=== PATIENT | female | born 1965 | race Caucasian/White ===

== ENCOUNTER 2017-07-14 05:58 | Day surgery (SDC) | payer OTHER ==
[~2017-07-14] VITALS: Ht 157.5 cm; Wt 73.9 kg
[2017-07-14] MEDS ORDERED: MIDAZOLAM HCL 5 MG/ML VIAL (VERSED) IV ONE (05:59)
[2017-07-14] MEDS ORDERED: CEFAZOLIN 2 GM IVPB PREMIX 50 ML IV ONE (05:59)
[2017-07-14] MEDS ORDERED: PROPOFOL 200MG/ 20ML VIAL (DIPRIVAN) IV ONE (05:59)
[2017-07-14] MEDS ORDERED: NS 1000 ML BAG IV ONE (05:59)
[2017-07-14] MEDS ORDERED: fentaNYL CITRATE 250 MCG/5 ML AMP IV ONE (05:59)
[2017-07-14] MEDS ORDERED: ROCURONIUM BROMIDE 10 MG/ML (ZEMURON) IV ONE (05:59)
[2017-07-14] MEDS ORDERED: ONDANSETRON HCL 4 MG/2 ML VIAL IVP ONE (05:59)
[2017-07-14] MEDS ORDERED: KETOROLAC TROMETHAMINE 30 MG VIAL IVP ONE (05:59)
[2017-07-14] MEDS ORDERED: LR 1,000 ML IV.SOLN IV ONE (05:59)
[2017-07-14] MEDS ORDERED: SEVOFLURANE 15 MIN GAS INH ONE (05:59)
[2017-07-14] MEDS ORDERED: NS IRRIG SOLN 1000 ML IR ONE (05:59)
[2017-07-14] MEDS ORDERED: BUPIVACAINE /EPINEPHRINE/PF 0.5% 30 ML VIAL INJ ONE (05:59)
[2017-07-14] MEDS ORDERED: LR 1,000 ML IV SCH (08:10)
[2017-07-14] MEDS ORDERED: METOCLOPRAMIDE HCL 10 MG/2 ML VIAL IVP PRN (08:15)
[2017-07-14] MEDS ORDERED: MORPHINE 4 MG/ML INJ. SYRINGE IVP PRN ×3 (08:15)
[2017-07-14] MEDS ORDERED: OXYCODONE/ACETAMINOPHEN 5-325 TABLET PO PRN (10:30)
[2017-07-14] MEDS ORDERED: HYDROmorphone 2 MG TAB PO PRN (10:30)
[2017-07-14] MEDS ORDERED: PROMETHAZINE HCL 25 MG/ML AMP IM PRN (10:30)
[2017-07-14] MEDS ORDERED: ONDANSETRON HCL 4 MG/2 ML VIAL IVP PRN (10:30)
[2017-07-14] MEDS ORDERED: MORPHINE 4 MG/ML INJ. SYRINGE ONE (11:11)
[2017-07-14] MEDS: ONDANSETRON HCL 4 MG/2 ML VIAL ONE (13:20)
== END 2017-07-14 14:25 | disposition home or self-care (01) ==
LOC: SDS 05:58 → SMU 06:27 → SDS 14:25
PROVIDERS: ATTEND Obstetrics & Gynecology
DX: D25.9 Leiomyoma of uterus, unspecified (principal); N80.0 Endometriosis of uterus; K21.9 Gastro-esophageal reflux disease without esophagitis; Z79.899 Other long term (current) drug therapy; Z80.42 Family history of malignant neoplasm of prostate; Z80.49 Family history of malignant neoplasm of other genital organs; E66.3 Overweight; E78.5 Hyperlipidemia, unspecified
CPT/HCPCS: 36415; 57000; 58571; 86886; 86900; 86901; 88307; C1727; J0690; J1885; J2250; J2270; J2405; J2704; J3010; J3490; J7030; J7120; E0190

== ENCOUNTER 2017-07-29 21:38 | Inpatient (IN) | payer OTHER ==
[~2017-07-29] VITALS: Ht 157.5 cm; Wt 74.8 kg
[2017-07-29 21:42] VITALS: BP_SYST 135
[2017-07-29] MEDS ORDERED: NACL 0.9% 1,000 ML IV ONE (23:44)
[2017-07-30 00:09] LABS: BASOPHILS # (AUTO) 0.1 K/uL (0.0-0.2); BASOPHILS % (AUTO) 0.5 % (0.0-2.0); EOSINOPHILS # (AUTO) 0.5 K/uL (0.0-0.4); EOSINOPHILS % (AUTO) 4.1 % (0.0-4.0); HEMATOCRIT 41.9 % (36-48); LYMPHOCYTES # (AUTO) 2.8 K/uL (1.0-5.5); LYMPHOCYTES % (AUTO) 25.2 % (20.5-51.5); MEAN CORPUSCULAR HEMOGLOBIN 29 pg (27-31); MEAN CORPUSCULAR HGB CONC 33 % (32-36); MEAN CORPUSCULAR VOLUME 85 fL (79.0-98.0); MONOCYTES # (AUTO) 0.5 K/uL (0.0-1.0); MONOCYTES % (AUTO) 4.8 % (1.7-9.3); NEUTROPHILS # (AUTO) 7.4 K/uL (1.8-7.7); NEUTROPHILS % (AUTO) 65.4 % (40.0-70.0); PLATELET COUNT (AUTO) 328 K/uL (130-430); RED BLOOD CELL COUNT(AUTO) 4.91 MIL/uL (4.2-6.2); RED CELL DISTRIBUTION WIDTH 11.4 % (9.0-15.0); WHITE BLOOD COUNT (AUTO) 11.3 K/uL (4.8-10.8)
[2017-07-30 00:17] LABS: CALCIUM 9.7 mg/dL (8.4-11.0); CREATININE 0.78 mg/dL (0.55-1.30); POTASSIUM 3.8 mmol/L (3.5-5.1)
[2017-07-30 00:20] LABS: PROTHROMBIN TIME 9.9 SECS (9.5-12.5)
[2017-07-30 00:23] LABS: ALBUMIN 3.6 g/dL (3.4-4.8); TOTAL BILIRUBIN 0.3 mg/dL (0.0-1.0)
[2017-07-30 02:01] LABS: BILIRUBIN,URINE NEGATIVE (NEGATIVE); BLOOD, URINE 3+ (NEGATIVE); CLARITY/URINE CLEAR (CLEAR); COLOR,URINE YELLOW (YELLOW); GLUCOSE,URINE NEGATIVE (NEGATIVE); KETONES,URINE NEGATIVE (NEGATIVE); LEUKOCYTE ESTERASE ,URINE TRACE (NEGATIVE); NITRITE, URINE NEGATIVE (NEGATIVE); PH,URINE 6.5 (5.0-8.0); PROTEIN URINE NEGATIVE (NEGATIVE); UROBILINOGEN,URINE 0.2 (0.2-1.0)
[2017-07-30 02:05] LABS: BACTERIA,URINE MODERATE /HPF (None Seen); URINE AMORPHOUS URATE 1+ /HPF (None Seen)
[2017-07-30 03:00] VITALS: BP_SYST 140
[2017-07-30 03:04] VITALS: BP_SYST 140
[2017-07-30 08:00] VITALS: BP_SYST 114
[2017-07-30 11:24] VITALS: BP_SYST 119
[2017-07-30 11:36] VITALS: BP_SYST 124
== END 2017-07-30 13:05 | disposition home or self-care (01) | DRG 921 ==
LOC: SED 21:38 → SMU 07-30 02:32
PROVIDERS: ADMIT Specialist; ATTEND Specialist
DX: N99.820 Postprocedural hemorrhage of a genitourinary system organ or structure following a genitourinary system procedure (principal); Z80.49 Family history of malignant neoplasm of other genital organs; N99.840 Postprocedural hematoma of a genitourinary system organ or structure following a genitourinary system procedure; Y83.6 Removal of other organ (partial) (total) as the cause of abnormal reaction of the patient, or of later complication, without mention of misadventure at the time of the procedure; Y92.89 Other specified places as the place of occurrence of the external cause; Z83.3 Family history of diabetes mellitus; Z82.49 Family history of ischemic heart disease and other diseases of the circulatory system; Z90.710 Acquired absence of both cervix and uterus; Z90.79 Acquired absence of other genital organ(s)
CPT/HCPCS: 36415; 76830-TC; 76857; 80053; 81000-TC; 85025; 85610-TC; 85730-TC; 86886; 86900; 86901; 87081; 87086; 96360; 96361; 99285; J7030